=== PATIENT | male | born 1965 | race Caucasian/White ===

== ENCOUNTER 2019-06-20 00:34 | Day surgery (SDC) | payer OTHER ==
--- NOTE | 2019-06-20 01:11 | EDM.PDOC ---
ED HPI GENERAL MEDICAL PROBLEM - General Chief Complaint: Abdominal Pain Stated Complaint: SEVERE ABDOMINAL PAIN Time Seen by Provider: 06/20/19 01:11 - History of Present Illness INITIAL COMMENTS - FREE TEXT/NARRATIVE: 54-year-old male presents to the emergency room with abdominal pain. This started earlier this morning several hours ago. The pain woke him up from sleep. He describes pain as being mid abdominal and at times is quite severe it is subsided some since coming to the emergency room but it is still very much there. He's not had any diarrhea or constipation he had a normal BM yesterday he has not had any vomiting he has some nausea. Patient quit smoking about 5 years ago denies any other medical problems Abdomen Pain Score (Numeric/FACES): 10 - Related Data Allergies Allergy/AdvReac Type Severity Reaction Status Date / Time No Known Allergies Allergy Verified 06/22/14 08:22 Home Meds: Home Meds . [No Known Home Meds] 06/20/19 [History] ED ROS GENERAL - Review of Systems Review Of Systems: See Below Constitutional: Reports: No Symptoms HEENT: Reports: No Symptoms Respiratory: Reports: No Symptoms Cardiovascular: Reports: No Symptoms Endocrine: Reports: No Symptoms GI/Abdominal: Reports: Abdominal Pain, Nausea. Denies: Constipation, Diarrhea, Vomiting : Reports: No Symptoms Musculoskeletal: Reports: No Symptoms Skin: Reports: No Symptoms Neurological: Reports: No Symptoms Psychiatric: Reports: No Symptoms Hematologic/Lymphatic: Reports: No Symptoms Immunologic: Reports: No Symptoms ED EXAM, GI/ABD - Physical Exam Exam: See Below Exam Limited By: No Limitations General Appearance: Alert, No Apparent Distress Head: Atraumatic Neck: Normal Inspection, Supple, Non-Tender, Full Range of Motion Respiratory/Chest: No Respiratory Distress, Lungs Clear, Normal Breath Sounds Cardiovascular: Regular Rate, Rhythm, No Edema, No Murmur GI/Abdominal Exam: Normal Bowel Sounds, Soft, Other (He has significant tenderness in the periumbilical area favoring the left side more so than the right no rigidity rebound or guarding noted) Back Exam: Normal Inspection. No: CVA Tenderness (L), CVA Tenderness (R) Extremities: Normal Inspection, No Pedal Edema Neurological: Alert, Oriented, Normal Cognition Course - Vital Signs Last Recorded V/S: Last Vital Signs Temp 35.8 C 06/20/19 00:57 Pulse Resp 18 06/20/19 00:57 BP 122/76 06/20/19 00:57 Pulse Ox - Orders/Labs/Meds Orders: Active Orders 24 hr Category Date Time Status Abdomen Pelvis w Cont [CT] Stat Exams 06/20/19 03:15 Taken Labs: Laboratory Tests 06/20/19 06/20/19 06/20/19 Range/Units 01:25 01:25 03:30 WBC 11.47 H (4.23-9.07) K/mm3 RBC 4.51 L (4.63-6.08) M/mm3 Hgb 15.0 (13.7-17.5) gm/dl Hct 43.9 (40.1-51.0) % MCV 97.3 H (79.0-92.2) fl MCH 33.3 H (25.7-32.2) pg MCHC 34.2 (32.2-35.5) g/dl RDW Std Deviation 40.1 (35.1-43.9) fL Plt Count 323 (163-337) K/mm3 MPV 9.6 (9.4-12.3) fl Neut % (Auto) 72.2 H (34.0-67.9) % Lymph % (Auto) 17.4 L (21.8-53.1) % [place] % (Auto) 5.0 L (5.3-12.2) % Eos % (Auto) 4.9 (0.8-7.0) Baso % (Auto) 0.3 (0.1-1.2) % Neut # (Auto) 8.29 H (1.78-5.38) K/mm3 Lymph # (Auto) 2.00 (1.32-3.57) K/mm3 [place] # (Auto) 0.57 (0.30-0.82) K/mm3 Eos # (Auto) 0.56 H (0.04-0.54) K/mm3 Baso # (Auto) 0.03 (0.01-0.08) K/mm3 Manual Slide Review Normal smear Sodium 142 (136-145) mEq/L Potassium 3.3 L (3.5-5.1) mEq/L Chloride 104 (98-107) mEq/L Carbon Dioxide 29 (21-32) mEq/L Anion Gap 12.3 (5-15) BUN 15 (7-18) mg/dL Creatinine 0.8 (0.7-1.3) mg/dL Est Cr Clr Drug Dosing 105.84 mL/min Estimated GFR (MDRD) > 60 (>60) mL/min BUN/Creatinine Ratio 18.8 H (14-18) Glucose 140 H (74-106) mg/dL Calcium 9.6 (8.5-10.1) mg/dL Total Bilirubin 0.5 (0.2-1.0) mg/dL AST 23 (15-37) U/L ALT 41 (16-63) U/L Alkaline Phosphatase 92 (46-116) U/L Total Protein 7.5 (6.4-8.2) g/dl Albumin 4.1 (3.4-5.0) g/dl Globulin 3.4 gm/dL Albumin/Globulin Ratio 1.2 (1-2) Lipase 138 (73-393) U/L Urine Color Yellow (Yellow) Urine Appearance Clear (Clear) Urine pH 7.0 (5.0-8.0) Ur Specific [place] 1.020 (1.005-1.030) Urine Protein Negative (Negative) Urine Glucose (UA) Negative (Negative) Urine Ketones Negative (Negative) Urine Occult Blood Negative (Negative) Urine Nitrite Negative (Negative) Urine Bilirubin Negative (Negative) Urine Urobilinogen 0.2 (0.2-1.0) Ur Leukocyte Esterase Negative (Negative) Urine RBC Not seen (0-5) /hpf Urine WBC Not seen (0-5) /hpf Ur Epithelial Cells Not seen (0-5) /hpf Amorphous Sediment Few H (NOT SEEN) /hpf Urine Bacteria Not seen (FEW) /hpf Urine Mucus Rare (FEW) /hpf Meds: Medications Discontinued Medications Generic Name Dose Route Start Last Admin Trade Name Freq PRN Reason Stop Dose Admin Hydromorphone HCl 0.5 mg 06/20/19 04:11 06/20/19 04:19 Dilaudid IVPUSH 06/20/19 04:12 0.5 mg ONETIME ONE Administration Lactated Ringer's 1,000 mls @ 999 mls/hr 06/20/19 01:39 06/20/19 01:47 Ringers, Lactated IV 06/20/19 02:39 999 mls/hr .BOLUS ONE Administration Iopamidol 100 ml 06/20/19 04:46 06/20/19 04:52 Isovue-300 (61%) IVPUSH 06/20/19 04:47 100 ml ONETIME ONE Administration Ondansetron HCl 4 mg 06/20/19 04:08 06/20/19 04:11 Zofran IVPUSH 06/20/19 04:09 4 mg ONETIME ONE Administration Ondansetron HCl 4 mg 06/20/19 04:09 Zofran IVPUSH 06/20/19 04:10 ONETIME ONE - Re-Assessments/Exams Free Text/Narrative Re-Assessment/Exam: 06/20/19 04:01 Return evaluation shows a mildly elevated white count he's got a macrocytic process going on in his chemistries had some hypokalemia. His exam is not changed much it is still favoring the left side we will go ahead and check a CAT scan. 06/20/19 04:10 Patient had a vomiting episode we'll give him some Zofran and repeat if necessary he has about another 35 minutes to go for the CAT scan. 06/20/19 06:38 CT examination is most consistent with a small bowel obstruction. Case discussed with Dr. Hess who will assume care. Departure - Departure Time of Disposition: 06:38 Disposition: Refer to Observation Clinical Impression: Small bowel obstruction - Discharge Information Referrals: PCP,None [Primary Care Provider] - Forms: ED Department Discharge - My Orders Last 24 Hours: My Active Orders 06/20/19 03:15 Abdomen Pelvis w Cont [CT] Stat - Assessment/Plan Last 24 Hours: My Active Orders 06/20/19 03:15 Abdomen Pelvis w Cont [CT] Stat
[2019-06-20] MEDS ORDERED: Lactated Ringers 1,000 ML IV ONE (01:39)
[2019-06-20] MEDS ORDERED: Ondansetron 4 MG/2 ML SDV IVPUSH ONE ×2 (04:08→04:09)
[2019-06-20] MEDS ORDERED: HYDROmorphone 0.5 MG/0.5 ML Syringe IVPUSH ONE (04:11)
[2019-06-20] MEDS ORDERED: Iopamidol 612 MG/ML 100 ML Bottle IVPUSH ONE (04:46)
--- NOTE | 2019-06-20 06:57 | PCM.HP.2 ---
H&P History of Present Illness - General Date of Service: 06/20/19 Source of Information: Patient History Limitations: Reports: No Limitations - History of Present Illness Onset of Symptoms: Reports: Sudden Duration of Symptoms: Reports: Hour(s): Location: Reports: Abdomen Quality: Reports: Sharp Severity: Severe Improves with: Reports: Medication Worsens with: Reports: Eating, Movement Context: Reports: Rest Associated Symptoms: Reports: No Other Symptoms Other HPI/Comments: Previously healthy 54 yo man with no history of abdominal surgery presents with sudden onset diffuse abdominal pain that woke him from sleep at 11 pm yesterday. He has never had pain like this. The pain is severe, and was worse with movement and trying to pass a bowel movement. He has vomited, which provided some relief. He has a mild leukocytosis in the ER and a CT scan which shows evidence of small bowel obstruction with transition point at the ileum. No evidence of hernia on CT scan. Pain has improved significantly since receiving pain medication and episode of emesis. Abdomen Pain Score (Numeric/FACES): 10 - Related Data Allergies/Adverse Reactions: Allergies Allergy/AdvReac Type Severity Reaction Status Date / Time No Known Allergies Allergy Verified 06/22/14 08:22 Home Medications: Home Meds . [No Known Home Meds] 06/20/19 [History] Past Medical History HEENT History: Reports: Impaired Vision Social & Family History - Tobacco Use Smoking Status *Q: Never Smoker - Caffeine Use Caffeine Use: Reports: Coffee - Alcohol Use Days Per Week of Alcohol Use: 7 Number of Drinks Per Day: 2 Total Drinks Per Week: 14 - Recreational Drug Use Recreational Drug Use: No H&P Review of Systems - Review of Systems: Review Of Systems: See Below General: Reports: No Symptoms HEENT: Reports: No Symptoms Pulmonary: Reports: No Symptoms Cardiovascular: Reports: No Symptoms Gastrointestinal: Reports: Abdominal Pain, Anorexia, Difficulty Swallowing, Distension, Nausea, Vomiting Genitourinary: Reports: No Symptoms Musculoskeletal: Reports: No Symptoms Skin: Reports: No Symptoms Psychiatric: Reports: No Symptoms Neurological: Reports: No Symptoms Hematologic/Lymphatic: Reports: No Symptoms Immunologic: Reports: No Symptoms Exam - Exam Exam: See Below - Vital Signs Vital Signs: Last Vital Signs Temp 35.8 C 06/20/19 00:57 Pulse Resp 18 06/20/19 00:57 BP 122/76 06/20/19 00:57 Pulse Ox Weight: 72.575 kg - Exam General: Alert, Oriented HEENT: Conjunctiva Clear Neck: Supple Lungs: Normal Respiratory Effort Cardiovascular: Regular Rate, Regular Rhythm GI/Abdominal Exam: Soft, Distended (no abdominal mass or hernia, minimally tender on exam) (Male) Exam: Deferred Rectal (Males) Exam: Deferred Back Exam: Normal Inspection Extremities: Normal Inspection Peripheral Pulses: 2+: Radial (L), Radial (R) Skin: Warm, Dry Neurological: Normal Gait Neuro Extensive - Mental Status: Alert, Oriented x3, Normal Mood/Affect Neuro Extensive - Motor, Sensory, Reflexes: Normal Gait Psychiatric: Alert, Normal Affect, Normal Mood - Patient Data Lab Results Last 24 hrs: Laboratory Results - last 24 hr 06/20/19 06/20/19 06/20/19 Range/Units 01:25 01:25 03:30 WBC 11.47 H (4.23-9.07) K/mm3 RBC 4.51 L (4.63-6.08) M/mm3 Hgb 15.0 (13.7-17.5) gm/dl Hct 43.9 (40.1-51.0) % MCV 97.3 H (79.0-92.2) fl MCH 33.3 H (25.7-32.2) pg MCHC 34.2 (32.2-35.5) g/dl RDW Std Deviation 40.1 (35.1-43.9) fL Plt Count 323 (163-337) K/mm3 MPV 9.6 (9.4-12.3) fl Neut % (Auto) 72.2 H (34.0-67.9) % Lymph % (Auto) 17.4 L (21.8-53.1) % [place] % (Auto) 5.0 L (5.3-12.2) % Eos % (Auto) 4.9 (0.8-7.0) Baso % (Auto) 0.3 (0.1-1.2) % Neut # (Auto) 8.29 H (1.78-5.38) K/mm3 Lymph # (Auto) 2.00 (1.32-3.57) K/mm3 [place] # (Auto) 0.57 (0.30-0.82) K/mm3 Eos # (Auto) 0.56 H (0.04-0.54) K/mm3 Baso # (Auto) 0.03 (0.01-0.08) K/mm3 Manual Slide Review Normal smear Sodium 142 (136-145) mEq/L Potassium 3.3 L (3.5-5.1) mEq/L Chloride 104 (98-107) mEq/L Carbon Dioxide 29 (21-32) mEq/L Anion Gap 12.3 (5-15) BUN 15 (7-18) mg/dL Creatinine 0.8 (0.7-1.3) mg/dL Est Cr Clr Drug Dosing 105.84 mL/min Estimated GFR (MDRD) > 60 (>60) mL/min BUN/Creatinine Ratio 18.8 H (14-18) Glucose 140 H (74-106) mg/dL Calcium 9.6 (8.5-10.1) mg/dL Total Bilirubin 0.5 (0.2-1.0) mg/dL AST 23 (15-37) U/L ALT 41 (16-63) U/L Alkaline Phosphatase 92 (46-116) U/L Total Protein 7.5 (6.4-8.2) g/dl Albumin 4.1 (3.4-5.0) g/dl Globulin 3.4 gm/dL Albumin/Globulin Ratio 1.2 (1-2) Lipase 138 (73-393) U/L Urine Color Yellow (Yellow) Urine Appearance Clear (Clear) Urine pH 7.0 (5.0-8.0) Ur Specific [place] 1.020 (1.005-1.030) Urine Protein Negative (Negative) Urine Glucose (UA) Negative (Negative) Urine Ketones Negative (Negative) Urine Occult Blood Negative (Negative) Urine Nitrite Negative (Negative) Urine Bilirubin Negative (Negative) Urine Urobilinogen 0.2 (0.2-1.0) Ur Leukocyte Esterase Negative (Negative) Urine RBC Not seen (0-5) /hpf Urine WBC Not seen (0-5) /hpf Ur Epithelial Cells Not seen (0-5) /hpf Amorphous Sediment Few H (NOT SEEN) /hpf Urine Bacteria Not seen (FEW) /hpf Urine Mucus Rare (FEW) /hpf Result Diagrams: 06/20/19 01:25 06/20/19 01:25 *Q Meaningful Use (ADM) - VTE Risk Assess *Q Each Risk Factor Represents 1 Point: Age 41 - 59 years, Minor Surgery Planned Total Score 1 Point Risk Factors: 2 Each Risk Factor Represents 2 Points: Laparoscopic surgery greater than 45 minutes Total Score 2 Point Risk Factors: 2 Problem List Initiated/Reviewed/Updated: Yes Orders Last 24hrs: Active Orders 24 hr Category Date Time Status Abdomen Pelvis w Cont [CT] Stat Exams 06/20/19 03:15 Taken Schedule Procedure [COMM] Routine Oth 06/20/19 06:48 Ordered Assessment/Plan Comment:: De dayron small bowel obstruction- plan for diagnostic laparoscopy - Mortality Measure Prognosis:: Good
[2019-06-20] MEDS ORDERED: Rocuronium 50 MG/5 ML Vial ONE (08:34)
[2019-06-20] MEDS ORDERED: Propofol 200 MG/20 ML SDV ONE (08:34)
[2019-06-20] MEDS ORDERED: Ondansetron 4 MG/2 ML SDV ONE (08:34)
[2019-06-20] MEDS ORDERED: Midazolam 1 MG/ML 2 ML SDV ONE (08:35)
[2019-06-20] MEDS ORDERED: Lidocaine 1% 4 ML ONE (08:35)
[2019-06-20] MEDS ORDERED: fentaNYL 250 MCG/5 ML SDV ONE (08:35)
[2019-06-20] MEDS ORDERED: Bupivacaine 0.5%/EPINEPHrine 1:200,000 50 ML MDV ONE (08:44)
--- NOTE | 2019-06-20 09:00 | PCM.PREANE ---
Preanesthetic Assessment - Anesthesia/Transfusion/Family Hx Anesthesia History: Prior Anesthesia Without Reaction Family History of Anesthesia Reaction: No Transfusion History: No Prior Transfusion(s) - Review of Systems General: Fatigue, Malaise Pulmonary: No Symptoms Cardiovascular: No Symptoms Gastrointestinal: Abdominal Pain, Nausea, Vomiting Neurological: No Symptoms Other: Reports: None - Physical Assessment NPO Status Date: 06/19/19 NPO Status Time: 18:00 Vital Signs: Last Vital Signs Temp 35.8 C 06/20/19 00:57 Pulse Resp 18 06/20/19 00:57 BP 122/76 06/20/19 00:57 Pulse Ox Height: 1.78 m Weight: 72.575 kg ASA Class: 2 Mental Status: Alert & Oriented x3 Airway Class: Mallampati = 1 Dentition: Reports: Normal Dentition Thyro-Mental Finger Breadths: 3 Mouth Opening Finger Breadths: 3 ROM/Head Extension: Full Lungs: Clear to Auscultation, Normal Respiratory Effort Cardiovascular: Regular Rate, Regular Rhythm - Lab Values: Laboratory Last Values WBC 11.47 K/mm3 (4.23-9.07) H 06/20/19 01:25 RBC 4.51 M/mm3 (4.63-6.08) L 06/20/19 01:25 Hgb 15.0 gm/dl (13.7-17.5) 06/20/19 01:25 Hct 43.9 % (40.1-51.0) 06/20/19 01:25 MCV 97.3 fl (79.0-92.2) H 06/20/19 01:25 MCH 33.3 pg (25.7-32.2) H 06/20/19 01:25 MCHC 34.2 g/dl (32.2-35.5) 06/20/19 01:25 RDW Std Deviation 40.1 fL (35.1-43.9) 06/20/19 01:25 Plt Count 323 K/mm3 (163-337) 06/20/19 01:25 MPV 9.6 fl (9.4-12.3) 06/20/19 01:25 Neut % (Auto) 72.2 % (34.0-67.9) H 06/20/19 01:25 Lymph % (Auto) 17.4 % (21.8-53.1) L 06/20/19 01:25 [place] % (Auto) 5.0 % (5.3-12.2) L 06/20/19 01:25 Eos % (Auto) 4.9 (0.8-7.0) 06/20/19 01:25 Baso % (Auto) 0.3 % (0.1-1.2) 06/20/19 01:25 Neut # (Auto) 8.29 K/mm3 (1.78-5.38) H 06/20/19 01:25 Lymph # (Auto) 2.00 K/mm3 (1.32-3.57) 06/20/19 01:25 [place] # (Auto) 0.57 K/mm3 (0.30-0.82) 06/20/19 01:25 Eos # (Auto) 0.56 K/mm3 (0.04-0.54) H 06/20/19 01:25 Baso # (Auto) 0.03 K/mm3 (0.01-0.08) 06/20/19 01:25 Manual Slide Review Normal smear 06/20/19 01:25 Sodium 142 mEq/L (136-145) 06/20/19 01:25 Potassium 3.3 mEq/L (3.5-5.1) L 06/20/19 01:25 Chloride 104 mEq/L (98-107) 06/20/19 01:25 Carbon Dioxide 29 mEq/L (21-32) 06/20/19 01:25 Anion Gap 12.3 (5-15) 06/20/19 01:25 BUN 15 mg/dL (7-18) 06/20/19 01:25 Creatinine 0.8 mg/dL (0.7-1.3) 06/20/19 01:25 Est Cr Clr Drug Dosing 105.84 mL/min 06/20/19 01:25 Estimated GFR (MDRD) > 60 mL/min (>60) 06/20/19 01:25 BUN/Creatinine Ratio 18.8 (14-18) H 06/20/19 01:25 Glucose 140 mg/dL (74-106) H 06/20/19 01:25 Calcium 9.6 mg/dL (8.5-10.1) 06/20/19 01:25 Total Bilirubin 0.5 mg/dL (0.2-1.0) 06/20/19 01:25 AST 23 U/L (15-37) 06/20/19 01:25 ALT 41 U/L (16-63) 06/20/19 01:25 Alkaline Phosphatase 92 U/L (46-116) 06/20/19 01:25 Total Protein 7.5 g/dl (6.4-8.2) 06/20/19 01:25 Albumin 4.1 g/dl (3.4-5.0) 06/20/19 01:25 Globulin 3.4 gm/dL 06/20/19 01:25 Albumin/Globulin Ratio 1.2 (1-2) 06/20/19 01:25 Lipase 138 U/L (73-393) 06/20/19 01:25 Urine Color Yellow (Yellow) 06/20/19 03:30 Urine Appearance Clear (Clear) 06/20/19 03:30 Urine pH 7.0 (5.0-8.0) 06/20/19 03:30 Ur Specific [place] 1.020 (1.005-1.030) 06/20/19 03:30 Urine Protein Negative (Negative) 06/20/19 03:30 Urine Glucose (UA) Negative (Negative) 06/20/19 03:30 Urine Ketones Negative (Negative) 06/20/19 03:30 Urine Occult Blood Negative (Negative) 06/20/19 03:30 Urine Nitrite Negative (Negative) 06/20/19 03:30 Urine Bilirubin Negative (Negative) 06/20/19 03:30 Urine Urobilinogen 0.2 (0.2-1.0) 06/20/19 03:30 Ur Leukocyte Esterase Negative (Negative) 06/20/19 03:30 Urine RBC Not seen /hpf (0-5) 06/20/19 03:30 Urine WBC Not seen /hpf (0-5) 06/20/19 03:30 Ur Epithelial Cells Not seen /hpf (0-5) 06/20/19 03:30 Amorphous Sediment Few /hpf (NOT SEEN) H 06/20/19 03:30 Urine Bacteria Not seen /hpf (FEW) 06/20/19 03:30 Urine Mucus Rare /hpf (FEW) 06/20/19 03:30 - Allergies Allergies/Adverse Reactions: Allergies Allergy/AdvReac Type Severity Reaction Status Date / Time No Known Allergies Allergy Verified 06/22/14 08:22 - Anesthesia Plan Pre-Op Medication Ordered: None - Acknowledgements Anesthesia Type Planned: General Anesthesia Pt an Appropriate Candidate for the Planned Anesthesia: Yes Alternatives and Risks of Anesthesia Discussed w Pt/Guardian: Yes Pt/Guardian Understands and Agrees with Anesthesia Plan: Yes PreAnesthesia Questionnaire HEENT History: Reports: Impaired Vision - SUBSTANCE USE Smoking Status *Q: Never Smoker Tobacco Use Within Last Twelve Months: No Second Hand Smoke Exposure: No Days Per Week of Alcohol Use: 7 Number of Drinks Per Day: 2 Total Drinks Per Week: 14 Recreational Drug Use History: No - HOME MEDS Home Medications: Home Meds . [No Known Home Meds] 06/20/19 [History] - CURRENT (IN HOUSE) MEDS Current Meds: Current Medications Discontinued Medications Bupivacaine HCl/Epinephrine Bitart (Marcaine 0.5%/Epinephrine 1:200,000) Confirm Administered Dose 50 ml .ROUTE .STK-MED ONE Stop: 06/20/19 08:45 Fentanyl (Sublimaze) Confirm Administered Dose 250 mcg .ROUTE .STK-MED ONE Stop: 06/20/19 08:36 Hydromorphone HCl (Dilaudid) 0.5 mg IVPUSH ONETIME ONE Stop: 06/20/19 04:12 Last Admin: 06/20/19 04:19 Dose: 0.5 mg Lactated Ringer's (Ringers, Lactated) 1,000 mls @ 999 mls/hr IV .BOLUS ONE Stop: 06/20/19 02:39 Last Admin: 06/20/19 01:47 Dose: 999 mls/hr Lidocaine HCl (Xylocaine-Mpf 1%) Confirm Administered Dose 4 mls @ as directed .ROUTE .STK-MED ONE Stop: 06/20/19 08:36 Iopamidol (Isovue-300 (61%)) 100 ml IVPUSH ONETIME ONE Stop: 06/20/19 04:47 Last Admin: 06/20/19 04:52 Dose: 100 ml Midazolam HCl (Versed 1 Mg/Ml) Confirm Administered Dose 2 mg .ROUTE .STK-MED ONE Stop: 06/20/19 08:36 Ondansetron HCl (Zofran) 4 mg IVPUSH ONETIME ONE Stop: 06/20/19 04:09 Last Admin: 06/20/19 04:11 Dose: 4 mg Ondansetron HCl (Zofran) 4 mg IVPUSH ONETIME ONE Stop: 06/20/19 04:10 Ondansetron HCl (Zofran) Confirm Administered Dose 4 mg .ROUTE .STK-MED ONE Stop: 06/20/19 08:35 Propofol (Diprivan 20 Ml) Confirm Administered Dose 200 mg .ROUTE .STK-MED ONE Stop: 06/20/19 08:35 Rocuronium [place] (Zemuron) Confirm Administered Dose 50 mg .ROUTE .STK-MED ONE Stop: 06/20/19 08:35
--- NOTE | 2019-06-20 09:00 | CT ---
CT abdomen and pelvis Technique: Multiple axial sections were obtained from above the dome of the diaphragm inferiorly to the pubic symphysis. Intravenous and oral contrast was utilized. Oral contrast remains within the stomach and duodenum. Comparison: No prior abdominal imaging is available. Findings: Dilated small bowel loops are noted containing fluid. These dilated loops measure up to 2.9 cm as measured on the coronal images. Transitional point appears to be within the right mid pelvis. Etiology not seen and findings presumably due to adhesions. Mid and distal ileal loops show no dilatation. Visualized lung bases show nothing acute. Small hiatal hernia is noted. Liver contains no focal abnormality. Spleen appears within normal limits. Adrenal glands show no nodule. Pancreas is within normal limits. Gallbladder contains no calcified gallstones. Kidneys show symmetric contrast enhancement without hydronephrosis or mass. Aorta shows no aneurysm. No retroperitoneal adenopathy or mesenteric abnormalities are seen. No pelvic mass or adenopathy is seen. No free fluid or inflammatory change is seen. Minimal sigmoid diverticulosis is seen without diverticulitis. Appendix is seen and is normal in size. Bone window settings were reviewed which appear within normal limits for the patient's age. Impression: 1. Dilated small bowel loops with transition point being within the mid to right pelvis. Findings are compatible with mid to distal small bowel obstruction. Findings most likely due to adhesion. Please correlate if patient has had previous abdominal surgery as an etiology. Distal ileal loops are decompressed. 2. Other incidental findings as noted above which are nonacute. Diagnostic code #3 I agree with preliminary report from [facility], finalized on 06/20/19, 6:55 AM Central Time
[2019-06-20] MEDS ORDERED: ceFAZolin 1 GM Vial ONE (09:28)
[2019-06-20] MEDS ORDERED: Heparin Sodium 5,000 Units/ML Vial ONE (09:30)
[2019-06-20] MEDS ORDERED: Lactated Ringers 1,000 ML ONE (09:48)
[2019-06-20] MEDS ORDERED: oxyCODONE 5 MG Tab PO PRN (10:11)
--- NOTE | 2019-06-20 10:19 | PCM.PRNOTE ---
- Free Text/Narrative Note: Operative Report Operation: diagnostic laparoscopy Date: 06/20/2019 Attending Surgeon: Tomas Hess MD Indication for Surgery:den dayron small bowel obstruction Preoperative antibiotics: 2 g ancef IV VTE prophylaxis: Heparin 5000 u SC, SCDs Estimated Blood Loss: minimal Findings: normal anatomy with no obvious source of obstruction identified. Detailed Report: The patient underwent general endotracheal anesthesia after being placed supine on the operating table and initial timeout. The left arm was tucked at the patients side. The abdomen was prepped and draped in sterile fashion. A pre- incision timeout was performed confirming the patients identity and the operation to be performed. A Veress needle was inserted into the abdominal cavity below the left costal margin along the mid-clavicular line. The abdomen was insufflated with CO2 to 15 mm Hg. Gas was aspirated below the umbilicus with a syringe in order to ensure safe placement of a 5 mm bladed laparoscopic port. The 5mm 30 degree laparoscope was then inserted and viscera inspected. One additional 5 mm port was placed under direct vision with the laparoscope at the left lower quadrant. a 12 mm bladed port was placed at the left upper quadrant. The small bowel was then carefully inspected starting at the ileocecal junction and working proximally. A small amount of ascites was noted in the pelvis. There was no identifiable mass, inflammation or adhesions after thorough inspection. The proximal bowel was only mildly dilated. Internal inguinal rings were inspected and there was no evidence of inguinal hernia. The larger infraumbilical port was closed at the level of the fascia with vicryl suture using the PMI laparoscopic suture passer. Pneumoperitoneum was then released. All skin incisions were then closed with placement of subcuticular vicryl suture and dressed with dermabond. A total of 10 cc 0.5% bupivacaine with epinephrine was used for local anesthesia at the incision sites. The patient tolerated the operation well, was extubated in the operating room and transferred to the PACU for routine post-anesthesia care. Tomas Hess MD General Surgery
[2019-06-20] MEDS ORDERED: HYDROmorphone 0.5 MG/0.5 ML Syringe IVPUSH PRN (10:22)
[2019-06-20] MEDS ORDERED: fentaNYL 100 MCG/2 ML SDV IVPUSH PRN (10:22)
--- NOTE | 2019-06-20 10:23 | PCM.POSTAN ---
POST ANESTHESIA ASSESSMENT - MENTAL STATUS Mental Status: Alert, Oriented - VITAL SIGNS Vital Signs: Last Vital Signs Temp 35.8 C 06/20/19 00:57 Pulse Resp 18 06/20/19 00:57 BP 122/76 06/20/19 00:57 Pulse Ox - RESPIRATORY Respiratory Status: Respiratory Rate WNL, Airway Patent, O2 Saturation Stable - CARDIOVASCULAR CV Status: Pulse Rate WNL, Blood Pressure Stable - GASTROINTESTINAL GI Status: No Symptoms - PAIN Pain Score: 0 - POST OP HYDRATION Hydration Status: Adequate & Stable - OBSERVATIONS Free Text/Narrative:: no anesthesia complications noted
[2019-06-20] MEDS: Acetaminophen 325 MG/10.15 ML ML PO SCH ×2 (11:00→17:47)
--- NOTE | 2019-06-20 11:02 | PCM48HPAN ---
Post Anesthesia Note - EVALUATION WITHIN 48HRS OF ANESTHETIC Vital Signs in Normal Range: Yes Patient Participated in Evaluation: Yes Respiratory Function Stable: Yes Airway Patent: Yes Cardiovascular Function Stable: Yes Hydration Status Stable: Yes Pain Control Satisfactory: Yes Nausea and Vomiting Control Satisfactory: Yes Mental Status Recovered: Yes Vital Signs: Last Vital Signs Temp 36.6 C 06/20/19 10:45 Pulse 70 06/20/19 10:45 Resp 13 06/20/19 10:45 BP 129/86 06/20/19 10:45 Pulse Ox 97 06/20/19 10:53 - COMMENTS/OBSERVATIONS Free Text/Narrative:: no anesthesia complications noted
[2019-06-20] MEDS ORDERED: Ketorolac 30 MG/ML SDV IVPUSH ONE (16:06)
[2019-06-20] MEDS: Heparin Sodium 5,000 Units/ML Vial SUBCUT SCH ×2 (17:03→17:48)
[2019-06-21] MEDS: Heparin Sodium 5,000 Units/ML Vial SUBCUT SCH ×2 (01:51→09:41)
[2019-06-21] MEDS: Acetaminophen 325 MG/10.15 ML ML PO SCH ×2 (01:52→09:41)
--- NOTE | 2019-06-21 09:38 | PCM.DCSUM1 ---
Discharge Summary - Hospital Course Free Text/Narrative:: Presented to ED 06/20 with severe abdominal pain and evidence of de dayron small bowel obstruction in CT scan. Went to OR that day for exploratory laparoscopy. No pathology was identified and no hernia was evident anywhere. Postoperatively , the patient was placed on a regular diet which he tolerated without issue. His pain was adequately controlled with oral analgesics and he was deemed fit for discharge to home on 06/21. Diagnosis: Stroke: No - Discharge Data Discharge Date: 06/21/19 Discharge Disposition: Home, Self-Care 01 Condition: Good - Referral to Home Health Primary Care Physician: PCP None - Patient Summary/Data Operative Procedure(s) Performed: diagnostic laparoscopy Complications: none Recommended Follow-up Testing/Procedures: post-op visit to surgery clinic in 1-2 weeks Hospital Course: see above - Patient Instructions Diet: Regular Diet as Tolerated Activity: No Lifting Over 10 Pounds Driving, Other: do not drive while taking oxycodone Showering/Bathing: May Shower Wound/Incision Care: Keep Operative Site/Wound Site Clean and Dry Other/Special Instructions: -Take over the counter medications such as tylenol or motrin as directed on the label for mild pain. For more severe pain, take oxycodone as prescribed. Do not drink alcohol or drive a car while taking oxycodone or other narcotic medication. Narcotic medications can lead to constipation; consider taking an over the counter laxative or stool softener if taking narcotic pain medication. -For wound care, you may shower and gently wash the incisions with soap and water. -Do not lift anything heavier than 10 pounds for one month. Light aerobic exercise is okay; start slow and go at your own pace. Otherwise, keep dry. The surgical adhesive on the wound acts like a scab and will flake off eventually with time. -You may resume a regular diet. -Call the surgery clinic during office hours or return to the emergency room for any of the following: -continually worsening pain with inability to tolerate food. -increasing redness, pain, or drainage from the wound that has a foul odor or looks like. Pus. -fever (temperature greater than 101.5 F) more than 48 hours after operation. - persistent, worsening dizziness, light- headedness or weakness. - You should have a follow-up appointment in clinic within two weeks- if this has not been scheduled or you do not receive a call confirming the date and time of the appointment, call the clinic office - Discharge Plan *PRESCRIPTION DRUG MONITORING PROGRAM REVIEWED*: Yes *COPY OF PRESCRIPTION DRUG MONITORING REPORT IN PATIENT MORGAN: No Home Medications: Home Meds . [No Known Home Meds] 06/20/19 [History] Referrals: PCP,None [Primary Care Provider] - - Discharge Summary/Plan Comment DC Time >30 min.: No - Patient Data Vitals - Most Recent: Last Vital Signs Temp 36.3 C 06/21/19 01:58 Pulse 67 06/21/19 01:58 Resp 14 06/20/19 12:30 BP 152/81 H 06/21/19 01:58 Pulse Ox 93 L 06/21/19 01:58 Weight - Most Recent: 72.575 kg Med Orders - Current: Current Medications Acetaminophen (Tylenol) 975 mg PO Q8H [facility] Last Admin: 06/21/19 01:52 Dose: 975 mg Heparin Sodium (Porcine) (Heparin Sodium) 5,000 units SUBCUT Q8H [facility] Last Admin: 06/21/19 01:51 Dose: 5,000 units Oxycodone HCl (Oxycodone) 5 mg PO Q4H PRN PRN Reason: Pain (moderate 4-6) Discontinued Medications Bupivacaine HCl/Epinephrine Bitart (Marcaine 0.5%/Epinephrine 1:200,000) Confirm Administered Dose 50 ml .ROUTE .STK-MED ONE Stop: 06/20/19 08:45 Last Admin: 06/20/19 09:35 Dose: 6 ml Cefazolin Sodium (Ancef) Confirm Administered Dose 2 gm .ROUTE .STK-MED ONE Stop: 06/20/19 09:29 Fentanyl (Sublimaze) Confirm Administered Dose 250 mcg .ROUTE .STK-MED ONE Stop: 06/20/19 08:36 Fentanyl (Sublimaze) 50 mcg IVPUSH Q5M PRN PRN Reason: Pain Heparin Sodium (Porcine) (Heparin Sodium) Confirm Administered Dose 5,000 units .ROUTE .STK-MED ONE Stop: 06/20/19 09:31 Hydromorphone HCl (Dilaudid) 0.5 mg IVPUSH ONETIME ONE Stop: 06/20/19 04:12 Last Admin: 06/20/19 04:19 Dose: 0.5 mg Hydromorphone HCl (Dilaudid) 0.5 mg IVPUSH Q10M PRN PRN Reason: Pain (severe 7-10) Lactated Ringer's (Ringers, Lactated) 1,000 mls @ 999 mls/hr IV .BOLUS ONE Stop: 06/20/19 02:39 Last Admin: 06/20/19 01:47 Dose: 999 mls/hr Lidocaine HCl (Xylocaine-Mpf 1%) Confirm Administered Dose 4 mls @ as directed .ROUTE .STK-MED ONE Stop: 06/20/19 08:36 Lactated Ringer's (Ringers, Lactated) Confirm Administered Dose 1,000 mls @ as directed .ROUTE .STK-MED ONE Stop: 06/20/19 09:49 Iopamidol (Isovue-300 (61%)) 100 ml IVPUSH ONETIME ONE Stop: 06/20/19 04:47 Last Admin: 06/20/19 04:52 Dose: 100 ml Ketorolac Tromethamine (Toradol) 30 mg IVPUSH ONETIME ONE Stop: 06/20/19 16:07 Last Admin: 06/20/19 16:20 Dose: 30 mg Midazolam HCl (Versed 1 Mg/Ml) Confirm Administered Dose 2 mg .ROUTE .STK-MED ONE Stop: 06/20/19 08:36 Ondansetron HCl (Zofran) 4 mg IVPUSH ONETIME ONE Stop: 06/20/19 04:09 Last Admin: 06/20/19 04:11 Dose: 4 mg Ondansetron HCl (Zofran) 4 mg IVPUSH ONETIME ONE Stop: 06/20/19 04:10 Last Admin: 06/20/19 17:03 Dose: Not Given Ondansetron HCl (Zofran) Confirm Administered Dose 4 mg .ROUTE .STK-MED ONE Stop: 06/20/19 08:35 Propofol (Diprivan 20 Ml) Confirm Administered Dose 200 mg .ROUTE .STK-MED ONE Stop: 06/20/19 08:35 Rocuronium [place] (Zemuron) Confirm Administered Dose 50 mg .ROUTE .STK-MED ONE Stop: 06/20/19 08:35
== END 2019-06-21 12:15 | disposition home or self-care (01) ==
LOC: JD.ED 00:34 → JD.SDS 08:40 → JD.MS 14:46 → JD.SDS 06-21 12:15
PROVIDERS: ATTEND Surgery
DX: K56.609 Unspecified intestinal obstruction, unspecified as to partial versus complete obstruction (principal)
CPT/HCPCS: 36415; 49320; 74177; 80053; 81001; 83690; 85025; 96361; 96374; 96375; 99285; A9270; J0690; J1170; J1644; J1885; J2001; J2250; J2405; J2704; J3010; J3490; J7120; Q9967; 99284

== ENCOUNTER 2021-01-19 06:48 | Day surgery (SDC) | payer OTHER ==
[2021-01-19] MEDS ORDERED: Sodium Chloride 0.9% 10 ML Syringe FLUSH PRN (07:00)
[2021-01-19] MEDS ORDERED: Lidocaine 1%/Sod Bicarbonate in NS 8.4% 1 ML Syringe IDERM PRN (07:00)
[2021-01-19] MEDS ORDERED: Lactated Ringers 1,000 ML IV SCH (07:00)
[2021-01-19] MEDS ORDERED: Propofol 200 MG/20 ML SDV ONE (07:02)
[2021-01-19] MEDS ORDERED: Midazolam 1 MG/ML 2 ML SDV ONE (07:02)
--- NOTE | 2021-01-19 07:29 | PCM.PREANE ---
Preanesthetic Assessment - Anesthesia/Transfusion/Family Hx Anesthesia History: Prior Anesthesia Without Reaction Family History of Anesthesia Reaction: No Transfusion History: No Prior Transfusion(s) - Review of Systems General: No Symptoms, Other (ETOH use) Pulmonary: No Symptoms, Other (former smoker) Cardiovascular: Other (HTN) Gastrointestinal: Difficulty Swallowing Neurological: No Symptoms Other: Reports: None - Physical Assessment NPO Status Date: 01/18/21 NPO Status Time: 19:30 ASA Class: 2 Mental Status: Alert & Oriented x3 Airway Class: Mallampati = 2 Dentition: Reports: Normal Dentition, Partial Thyro-Mental Finger Breadths: 3 Mouth Opening Finger Breadths: 3 ROM/Head Extension: Full Lungs: Clear to Auscultation, Normal Respiratory Effort Cardiovascular: Regular Rate, Regular Rhythm - Allergies Allergies/Adverse Reactions: Allergies Allergy/AdvReac Type Severity Reaction Status Date / Time No Known Allergies Allergy Verified 01/18/21 11:09 - Blood Blood Available: No Product(s) Available: None - Anesthesia Plan Pre-Op Medication Ordered: None - Acknowledgements Anesthesia Type Planned: MAC Pt an Appropriate Candidate for the Planned Anesthesia: Yes Alternatives and Risks of Anesthesia Discussed w Pt/Guardian: Yes Pt/Guardian Understands and Agrees with Anesthesia Plan: Yes PreAnesthesia Questionnaire HEENT History: Reports: Impaired Vision Other HEENT History: has glasses, partial Cardiovascular History: Reports: Hypertension Respiratory History: Reports: Other (See Below) Other Respiratory History: cough Gastrointestinal History: Reports: Other (See Below) Other Gastrointestinal History: dysphagia, small bowel obstruction with exploratory laparoscopy Genitourinary History: Reports: None CEMETERY MANAGER History: Reports: None Musculoskeletal History: Reports: None Neurological History: Reports: None Psychiatric History: Reports: None Endocrine/Metabolic History: Reports: None Hematologic History: Reports: None Immunologic History: Reports: None Oncologic (Cancer) History: Reports: None Dermatologic History: Reports: Other (See Below) Other Dermatologic History: atopic dermatitis - Past Surgical History Head Surgeries/Procedures: Reports: None Respiratory Surgical History: Reports: None GI Surgical History: Reports: None Female Surgical History: Reports: None Male Surgical History: Reports: None Endocrine Surgical History: Reports: None Neurological Surgical History: Reports: None Musculoskeletal Surgical History: Reports: None Oncologic Surgical History: Reports: None Dermatological Surgical History: Reports: Skin Graft - SUBSTANCE USE Tobacco Use Status *Q: Former Tobacco User Days Per Week of Alcohol Use: 2 Number of Drinks Per Day: 6 Total Drinks Per Week: 12 Recreational Drug Use History: No - HOME MEDS Home Medications: Home Meds Cetirizine HCl [Zyrtec] 10 mg PO DAILY 01/18/21 [History] hydroCHLOROthiazide [Hydrochlorothiazide] 12.5 mg PO DAILY 01/18/21 [History] - CURRENT (IN HOUSE) MEDS Current Meds: Current Medications Lactated Ringer's (Ringers, Lactated) 1,000 mls @ 125 mls/hr IV ASDIRECTED JESI Stop: 01/19/21 23:00 Lidocaine/Sodium Bicarbonate (Lidocaine 1%/Sod Bicarbonate In Ns 8.4% 1 Ml Syr ester) 0.25 ml IDERM ONETIME PRN PRN Reason: Prior to IV Start Stop: 01/19/21 18:00 Sodium Chloride (Sodium Chloride 0.9% 10 Ml Syringe) 10 ml FLUSH ASDIRECTED PRN PRN Reason: Keep Vein Open Stop: 01/19/21 18:00 Discontinued Medications Midazolam HCl (Midazolam 1 Mg/Ml 2 Ml Sdv) Confirm Administered Dose 2 mg .ROUTE .STK-MED ONE Stop: 01/19/21 07:03 Propofol (Propofol 200 Mg/20 Ml Sdv) Confirm Administered Dose 400 mg .ROUTE .STK-MED ONE Stop: 01/19/21 07:03
--- NOTE | 2021-01-19 08:31 | PCM48HPAN ---
Post Anesthesia Note - EVALUATION WITHIN 48HRS OF ANESTHETIC Vital Signs in Normal Range: Yes Patient Participated in Evaluation: Yes Respiratory Function Stable: Yes Airway Patent: Yes Cardiovascular Function Stable: Yes Hydration Status Stable: Yes Pain Control Satisfactory: Yes Nausea and Vomiting Control Satisfactory: Yes Mental Status Recovered: Yes Vital Signs: Last Vital Signs Temp 36.7 C 01/19/21 07:20 Pulse 90 01/19/21 07:20 Resp 16 01/19/21 07:20 BP 153/100 H 01/19/21 07:20 Pulse Ox 92 L 01/19/21 07:20
--- NOTE | 2021-01-19 08:32 | PCM.PRNOTE ---
- Free Text/Narrative Note: Date: 01/19/2021 Procedure: diagnostic esophagogastroduodenoscopy Indication: medically refractory reflux disease with evidence of distal esophageal stricture on esophagram Endoscopist: Tomas Hess MD Findings: grossly evident reflux esophagitis. GE junction traversed with endoscope easily. No hiatal hernia. Detailed Report: The patient was taken to the endoscopy suite and placed in left lateral decubitus position. Time out was performed and monitored anesthesia care initiated. A bite block was placed. The endoscope was inserted into the mouth and advanced to the distal duodenum with ease. As the scope was advanced, there were linear ulcerations along esophageal mucosal ridges extending proximally to the mid-esophagus. There was no difficulty passing the scope beyond the area of noted stricturing on prior imaging. The proximal duodenal mucosa looked effaced, without the usual prominent mucosal folds. The pylorus was widely open. There was mucosal erythema of the gastri antrum. Sample biopsies of duodenal and antral mucosa were obtained with cold forceps. On retroflexion, no hiatal hernia was evident. The scope was withdrawn to the distal esophagus. The Z line was well demarcated, and proximal to this was whitish plaque consistent with fibrinous tissue. There appeared to be gross evidence of esophagitis with erythema and linear ulcerative changes. Biopsies were obtained of the distal esophageal mucosa. There was no apparent metaplastic changes or gross evidence of malignancy. No balloon dilation was deemed necessary. Air was suctioned from the stomach and the scope was withdrawn. The patient tolerated the procedure well.
== END 2021-01-19 09:30 | disposition home or self-care (01) ==
LOC: JD.SDS 06:48
PROVIDERS: ATTEND Surgery
DX: K29.50 Unspecified chronic gastritis without bleeding (principal); B96.81 Helicobacter pylori [H. pylori] as the cause of diseases classified elsewhere; K21.00 Gastro-esophageal reflux disease with esophagitis, without bleeding; K31.89 Other diseases of stomach and duodenum; I10 Essential (primary) hypertension; Z87.891 Personal history of nicotine dependence; Z86.16 Personal history of COVID-19
CPT/HCPCS: 43239; J2250; J2704; J7120; 00731

== ENCOUNTER 2022-10-27 12:55 | Emergency (ER) | payer OTHER ==
[2022-10-27] MEDS ORDERED: Aspirin 81 MG Tab.Chew PO ONE (13:11)
[2022-10-27] MEDS ORDERED: Sodium Chloride 0.9% 10 ML Syringe FLUSH PRN (13:11)
[2022-10-27] MEDS ORDERED: Dicyclomine 10 MG Cap PO ONE (14:24)
== END 2022-10-27 17:11 | disposition home or self-care (01) ==
LOC: JD.ED 12:55
DX: R07.89 Other chest pain (principal); R19.7 Diarrhea, unspecified; I10 Essential (primary) hypertension; Z79.899 Other long term (current) drug therapy
CPT/HCPCS: 36415; 71045; 80053; 83690; 83735; 84484; 85025; 85379; 85610; 93005; 99285; A9270; 93010; 99283

== ENCOUNTER 2022-11-20 07:56 | Day surgery (SDC) | payer OTHER ==
[~2022-11-20 07:56] MED LIST: Lactated Ringers 1,000 ML IV SCH; Lidocaine 1%/Sod Bicarbonate in NS 8.4% 1 ML Syringe IDERM PRN; Sodium Chloride 0.9% 10 ML Syringe FLUSH PRN; Sodium Chloride 0.9% 10 ML Syringe FLUSH SCH
[2022-11-20] MEDS ORDERED: Lidocaine 1% 6 ML ONE (09:10)
[2022-11-20] MEDS ORDERED: Propofol 200 MG/20 ML SDV ONE ×3 (09:10→09:30)
== END 2022-11-20 10:22 | disposition home or self-care (01) ==
LOC: JD.SDS 07:56
PROVIDERS: ATTEND Surgery
DX: Z12.11 Encounter for screening for malignant neoplasm of colon (principal); K52.9 Noninfective gastroenteritis and colitis, unspecified; K57.30 Diverticulosis of large intestine without perforation or abscess without bleeding; I10 Essential (primary) hypertension; Z79.899 Other long term (current) drug therapy; Z87.891 Personal history of nicotine dependence
CPT/HCPCS: 45380; J2704; J7120; 00812; J3490

== ENCOUNTER 2024-04-02 18:03 | Emergency (ER) | payer OTHER ==
[2024-04-02] MEDS: Diphtheria,Pertussis(Acell),Tetanus Vaccine 0.5 ML Syringe IM ONE (20:05)
[2024-04-02] MEDS: Lidocaine 1% 10 ML MDV INJECT ONE (20:05)
[2024-04-02] MEDS: Amoxicillin/Clavulanate K 875-125 MG Tab PO ONE (21:24)
== END 2024-04-02 21:32 | disposition home or self-care (01) ==
LOC: JD.ED 18:03
DX: S61.011A Laceration without foreign body of right thumb without damage to nail, initial encounter (principal); I10 Essential (primary) hypertension; Z79.899 Other long term (current) drug therapy; Z23 Encounter for immunization; X58.XXXA Exposure to other specified factors, initial encounter; Y92.89 Other specified places as the place of occurrence of the external cause; Y99.0 Civilian activity done for income or pay
CPT/HCPCS: 12001; 73140; 90471; 90715; 99283; A9270; J3490